=== PATIENT | male | born 1980 | race Caucasian/White ===

== ENCOUNTER 2021-11-26 01:30 | Emergency (ER) | payer OTHER ==
[~2021-11-26] VITALS: Ht 182.8 cm; Wt 86.2 kg
[~2021-11-26 01:30] MED LIST: ACULAR 3 ML3 M1 OP; ATIVAN1 MG PO; CATAFLAM50 MG PO; FLEXERIL5 MG; FLEXERIL5 MG PO; FOLIC ACID1 MG PO; HYDROCODONE BIT1 T11 PO; NKHM; PHENERGAN W/ DE30 ML PO; PREDNICOT10 MG PO; PREDNICOT20 MG PO; PROAIR HFA0.09 MG/AC INH; SULFASALAZINE500 M1 PO; TOBREX OPHTH S2.5 ML OPH; TRAMADOL HCL50 MG; TRAMADOL HCL50 MG PO; VICODIN 5/500 505 MG; ZITHROMAX Z PA250 MG PO
[2021-11-26] MEDS ORDERED: KETOCONAZOLE 1120 ML T (01:39)
[2021-11-26] MEDS ORDERED: HYDROXYZINE HCL25 MG PO (01:41)
== END 2021-11-26 01:51 | disposition home or self-care (01) ==
LOC: ED 01:30
DX: B36.0 Pityriasis versicolor (principal); F17.200 Nicotine dependence, unspecified, uncomplicated; Z79.899 Other long term (current) drug therapy

== ENCOUNTER → 2023-01-22 | Outpatient (CLI) | payer OTHER ==
[~2023-01-22] MED LIST changes: +COLACE100 MG PO; +HYDROCODONE-AC1 EAC1 PO; +HYDROXYZINE HCL25 MG PO; +KETOCONAZOLE 1120 ML T; +ONDANSETRON HYDR4 M1 PO; +PERCOCET 5-3251 EACH PO
[2023-01-22 17:33] LABS: BASO # 0.1 10*3/uL (0.0-0.1); BASO % 0.8 % (0.0-1.0); EOS # 0.1 10*3/uL (0.0-0.4); EOS % 1.1 % (1.0-4.0); HEMATOCRIT 46.4 % (42.0-52.0); LYMPH # 3.7 10*3/uL (1.3-4.4); MEAN CELL VOLUME 91.3 fl (80.0-94.0); MEAN CORPUSCULAR HGB 32.1 pg (27.0-31.0); MEAN CORPUSCULAR HGB CONC 35.1 g/dl (33.0-37.0); MEAN PLATELET VOLUME 8.9 fl (9.6-12.3); MONO # 0.6 10*3/uL (0.1-1.0); MONO % 4.7 % (3.0-9.0); NEUT # 8.6 10*3/uL (2.3-7.9); NEUT % 65.1 % (47.0-73.0); PLATELET COUNT AUTOMATED 346 10*3/uL (130-400); RED BLOOD COUNT 5.08 10*6/uL (4.50-5.90); RED CELL DISTRI WIDTH 12.8 % (0-14.5); WHITE BLOOD COUNT 13.2 10*3/uL (4.8-10.8)
[2023-01-22 17:53] LABS: ALKALINE PHOSPHATASE 94 U/L (46-116); BUN 9 mg/dl (9-23); CHLORIDE 109 mmol/L (98-107); POTASSIUM 3.9 mmol/L (3.4-5.1); SGPT/ALT 17 U/L (10-49); TOTAL PROTEIN 7.5 gm/dL (6.0-8.0)
== END | disposition home or self-care (01) ==
LOC: LAB 17:17
PROVIDERS: ATTEND Internal Medicine Gastroenterology
DX: K50.00 Crohn's disease of small intestine without complications (principal)

== ENCOUNTER → 2023-02-16 | Outpatient (CLI) | payer OTHER | END | disposition home or self-care (01) | LOC: CT 02-06 02:57 | PROVIDERS: ATTEND Internal Medicine Gastroenterology | DX: K80.20 Calculus of gallbladder without cholecystitis without obstruction (principal); K76.0 Fatty (change of) liver, not elsewhere classified; K50.90 Crohn's disease, unspecified, without complications; Z90.49 Acquired absence of other specified parts of digestive tract ==

== ENCOUNTER → 2023-06-12 | Outpatient (CLI) | payer OTHER ==
[2023-06-12 16:35] LABS: BASO # 0.1 10*3/uL (0.0-0.1); BASO % 0.6 % (0.0-1.0); EOS # 0.1 10*3/uL (0.0-0.4); EOS % 0.7 % (1.0-4.0); HEMATOCRIT 48.4 % (42.0-52.0); LYMPH # 4.2 10*3/uL (1.3-4.4); LYMPH % 34.1 % (27.0-41.0); MEAN CELL VOLUME 94.5 fl (80.0-94.0); MEAN CORPUSCULAR HGB 31.3 pg (27.0-31.0); MEAN CORPUSCULAR HGB CONC 33.1 g/dl (33.0-37.0); MEAN PLATELET VOLUME 9.1 fl (9.6-12.3); MONO # 0.5 10*3/uL (0.1-1.0); MONO % 4.3 % (3.0-9.0); NEUT # 7.4 10*3/uL (2.3-7.9); NEUT % 60.1 % (47.0-73.0); PLATELET COUNT AUTOMATED 347 10*3/uL (130-400); RED BLOOD COUNT 5.12 10*6/uL (4.50-5.90); RED CELL DISTRI WIDTH 13.2 % (0-14.5); WHITE BLOOD COUNT 12.4 10*3/uL (4.8-10.8)
[2023-06-12 16:48] LABS: URINE CREATININE RANDOM 215.31 mg/dL
[2023-06-12 17:01] LABS: ALKALINE PHOSPHATASE 95 U/L (46-116); BUN 9 mg/dl (9-23); CHLORIDE 109 mmol/L (98-107); CHOLESTEROL 219 mg/dL (<200); LDL CHOLESTEROL 163 mg/dL (9-159); POTASSIUM 4.2 mmol/L (3.4-5.1); SGPT/ALT 22 U/L (5-49); TOTAL PROTEIN 7.3 gm/dL (6.0-8.0); TRIGLYCERIDES 101 mg/dl (<150); URIC ACID 4.5 mg/dL (3.7-9.2)
== END | disposition home or self-care (01) ==
LOC: LAB 16:09
PROVIDERS: ATTEND Internal Medicine
DX: K80.20 Calculus of gallbladder without cholecystitis without obstruction (principal); R93.5 Abnormal findings on diagnostic imaging of other abdominal regions, including retroperitoneum; K50.90 Crohn's disease, unspecified, without complications; Z87.19 Personal history of other diseases of the digestive system

== ENCOUNTER 2024-11-02 16:50 | Emergency (ER) | payer OTHER ==
[~2024-11-02] VITALS: Ht 182.8 cm; Wt 70.8 kg
[2024-11-02] MEDS ORDERED: GOOD NEIGHBOR L10 MG PO (17:11)
[2024-11-02] MEDS ORDERED: CLONIDINE HCL0.2 MG PO (17:11)
[2024-11-02] MEDS ORDERED: DIAZEPAM10 M1 PO (17:11)
[2024-11-02] MEDS ORDERED: LINZESS290 MC1 PO (17:12)
[2024-11-02] MEDS ORDERED: TIZANIDINE HCL4 MG PO (17:12)
[2024-11-02] MEDS ORDERED: PRILOSEC20 M1 PO (17:12)
[2024-11-02] MEDS ORDERED: GABAPENTIN100 M2 PO (17:13)
[2024-11-02] MEDS ORDERED: Acetaminophen/Hydrocodone HP 10/325 PO ONE (18:40)
== END 2024-11-02 18:54 | disposition home or self-care (01) ==
LOC: ED 16:50
DX: S20.212A Contusion of left front wall of thorax, initial encounter (principal); Z79.899 Other long term (current) drug therapy; Z87.891 Personal history of nicotine dependence; W08.XXXA Fall from other furniture, initial encounter; Y93.89 Activity, other specified; Y92.89 Other specified places as the place of occurrence of the external cause; Y99.8 Other external cause status

== ENCOUNTER 2025-02-17 23:49 | Emergency (ER) | payer OTHER ==
[~2025-02-17 23:49] MED LIST changes: +CLONIDINE HCL0.2 MG PO; +DIAZEPAM10 M1 PO; +GABAPENTIN100 M2 PO; +GOOD NEIGHBOR L10 MG PO; +LINZESS290 MC1 PO; +PRILOSEC20 M1 PO; +TIZANIDINE HCL4 MG PO
[2025-02-18 00:14] LABS: BASO # 0.1 10*3/uL (0.0-0.1); BASO % 1.0 % (0.0-1.0); EOS # 0.0 10*3/uL (0.0-0.4); EOS % 0.2 % (1.0-4.0); MEAN CELL VOLUME 92.9 fl (80.0-94.0); MEAN CORPUSCULAR HGB 31.2 pg (27.0-31.0); MEAN PLATELET VOLUME 8.7 fl (9.6-12.3); MONO # 0.6 10*3/uL (0.1-1.0); MONO % 5.1 % (3.0-9.0); NEUT # 7.8 10*3/uL (2.3-7.9); NEUT % 64.6 % (47.0-73.0); NUCLEATED RED BLOOD CELL 0.0 % (0.0-0.0); NUCLEATED RED BLOOD CELL 0.0 10*3/uL (0.0-0.0); PLATELET COUNT AUTOMATED 302 10*3/uL (130-400); RED CELL DISTRI WIDTH 13.0 % (0-14.5)
[2025-02-18 00:34] LABS: BUN 13 mg/dl (9-23)
[2025-02-18] MEDS ORDERED: LORazepam 1 MG TAB PO ONE (01:05)
== END 2025-02-18 02:53 | disposition home or self-care (01) ==
LOC: ED 23:49
PROVIDERS: Internal Medicine
DX: R07.89 Other chest pain (principal); I24.9 Acute ischemic heart disease, unspecified; F43.9 Reaction to severe stress, unspecified; K21.9 Gastro-esophageal reflux disease without esophagitis; F41.9 Anxiety disorder, unspecified; F32.A Depression, unspecified; F17.210 Nicotine dependence, cigarettes, uncomplicated